=== PATIENT | female | born 1975 | race Two or more races ===

== ENCOUNTER 2017-05-10 14:45 | Emergency (ER) | payer MEDICAID ==
[~2017-05-10] VITALS: Ht 182.9 cm; Wt 86.2 kg
[2017-05-10] MEDS ORDERED: Mylanta II UD 30ml ORAL ONE (15:00)
[2017-05-10] MEDS ORDERED: Dicyclomine HCl 10mg/5ml oral soln ORAL ONE (15:00)
[2017-05-10] MEDS ORDERED: Lidocaine 2% Visc 15ml soln ORAL ONE (15:00)
--- NOTE | 2017-05-10 15:05 | Emergency Room Report ---
History of Present Illness General Chief Complaint: Abdominal Pain Source: Patient, EMS Present Illness HPI 41YOF BIBEMS from work with acute onset abd pain 8 min after eating reheated [employer] burger. No vomiting, diarrhea, fever/chills, urinary complaints No sick contacts Gastric bypass 9 years prior. No additional surgical history Patient bought chicken sandwich and burger yesterday Ate chicken sandwich, put burger in fridge Reheated at work, ate half of it. Within 8 minutes, had 6/10 sharp abd pain to left and right side of abdomen. Nauseated but cant vomit. Allergies: Coded Allergies: No Known Allergies (Unverified , 05/10/17) Patient History Past Medical History: none Past Surgical History: other - gastric bypass Social History: Denies: smoking, alcohol use, drug use Now: No Immunizations: UTD Reviewed Nursing Documentation: PMH: Agreed, PSxH: Agreed Nursing Documentation-PMH Past Medical History: No History, Except For Review of Systems All Other Systems: negative except mentioned in HPI Physical Exam Vital Signs Date Time Temp Pulse Resp B/P (MAP) Pulse Ox O2 Delivery O2 Flow Rate FiO2 05/10/17 14:34 98.2 65 20 106/69 99 Room Air Sp02 EP Interpretation: reviewed, normal General Appearance: normal inspection, well appearing, no apparent distress, alert, GCS 15, non-toxic, other - Well appearing, drinking water in stretcher Head: normocephalic, atraumatic Eyes: bilateral eye PERRL, bilateral eye EOMI ENT: normal ENT inspection, hearing grossly normal, normal voice Neck: normal inspection, full range of motion, supple, no bony tend Respiratory: normal inspection, lungs clear, normal breath sounds, no respiratory distress, no retraction, no wheezing Cardiovascular #1: regular rate, rhythm, no edema Gastrointestinal: normal inspection, normal bowel sounds, non tender, soft, no guarding, no hernia Genitourinary: no CVA tenderness Musculoskeletal: normal inspection, back normal, normal range of motion, Fe' s Sign negative Neurologic: normal inspection, alert, oriented x3, responsive, 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 No peritonitis. GI cocktail given with improvement of symptoms VSS. Afebrile. Patient had diarrhea prior to DC so unlikely SBO Low suspicion for acute bacterial/surgical process requiring additional lab work , imaging, admission and/or surgical evaluation at this time given well appearing, non-focal abd on serial exam, stable vital signs, and tolerating PO. In shared decision making process with patient, understands to return to ER for worsening symptoms and to followup with PMD in reasonable amount of time, 2- 3 days. Last Vital Signs Date Time Temp Pulse Resp B/P (MAP) Pulse Ox O2 Delivery O2 Flow Rate FiO2 05/10/17 14:34 98.2 65 20 106/69 99 Room Air Status: improved Disposition: HOME, SELF-CARE POLINA ARCE M.D. May 10, 2017 15:05
[2017-05-10] MEDS ORDERED: ZOFRAN ODT4 MG ORAL (15:08)
[2017-05-10] MEDS ORDERED: PEPCID40 MG PO (15:08)
[2017-05-10 15:34] VITALS: BP 119/65
== END 2017-05-10 15:31 | disposition home or self-care (01) ==
LOC: EDBD 14:45 → EMR 15:01
DX: R10.84 Generalized abdominal pain (principal); R11.0 Nausea; Z98.84 Bariatric surgery status
CPT/HCPCS: 99284

== ENCOUNTER 2017-07-07 09:40 | Emergency (ER) | payer BC, MEDICAID ==
[~2017-07-07] VITALS: Ht 182.9 cm; Wt 93.0 kg
[~2017-07-07 09:40] MED LIST: PEPCID40 MG PO; ZOFRAN ODT4 MG ORAL
[2017-07-07 10:35] LABS: APPEARANCE,URINE CLEAR; EOSINOPHILS % (AUTO) 1.9 % (0.0-3.0); KETONES,URINE NEGATIVE (NEGATIVE); LEUKOCYTE ESTERASE ,URINE 1+ (NEGATIVE); LYMPHOCYTES % (AUTO) 24.8 % (20.0-45.0); MEAN CORPUSCULAR HEMOGLOBIN 28.1 PG (27.0-31.0); MEAN CORPUSCULAR HGB CONC 30.9 G/DL (32.0-36.0); MEAN CORPUSCULAR VOLUME 91 FL (80-99); MEAN PLATELET VOLUME 8.7 FL (6.5-10.1); MONOCYTES % (AUTO) 7.8 % (1.0-10.0); NEUTROPHILS % (AUTO) 64.5 % (45.0-75.0); NITRITE,URINE NEGATIVE (NEGATIVE); PH,URINE 5 (4.5-8.0); PLATELET COUNT 315 K/UL (150-450); PROTEIN,URINE NEGATIVE (NEGATIVE); UROBILINOGEN,URINE NORMAL MG/DL (0.0-1.0); WHITE BLOOD COUNT 9.4 K/UL (4.8-10.8)
[2017-07-07 10:39] VITALS: BP 105/69
[2017-07-07 10:50] LABS: ANION GAP 7 mmol/L (5-15); CALCIUM 8.5 MG/DL (8.5-10.1); CARBON DIOXIDE 27 MMOL/L (21-32); CHLORIDE 107 MMOL/L (98-107); CREATININE 0.6 MG/DL (0.55-1.30); GLOMERULAR FILTRATION RATE > 60 mL/min (>60); POTASSIUM 3.9 MMOL/L (3.5-5.1); SODIUM 141 MMOL/L (136-145)
[2017-07-07 10:54] LABS: SQUAMOUS EPITHELIAL CELL,UR FEW /LPF (NONE/OCC); WBC,URINE 0-2 /HPF (0 - 2)
[2017-07-07 10:55] LABS: ALANINE AMINOTRANSFERASE 44 U/L (12-78); ALBUMIN/GLOBULIN RATIO 0.9 (1.0-2.7); ASPARTATE AMINO TRANSFERASE 20 U/L (15-37); BACTERIA,URINE FEW /HPF; TOTAL PROTEIN 7.4 G/DL (6.4-8.2)
--- NOTE | 2017-07-07 10:55 | Diagnostic Imaging Report ---
Indication: Headache Technique: Contiguous 5 mm thick transaxial imaging of the head obtained in a Siemens Sensation [address] scanner. Soft tissue and bone windows generated. Automatic Exposure Control was utilized. Total Dose length Product (DLP): [address] Dose Index Volume (CTDIvol): 70.38, 0.15 mGy Comparison: none Findings: The size and configuration of the cortical sulci, basal cisterns, and ventricles are within normal limits for age. There is no mass effect, midline shift, or edema identified. There is no evidence of acute hemorrhage or abnormal intra-axial or extra-axial fluid collections. The bones and soft tissues are unremarkable. Impression: No mass effect, edema or acute bleed. The CT scanner at [facility] is accredited by the [employer] and the scans are performed using dose optimization techniques as appropriate to a performed exam including Automatic Exposure control.
[2017-07-07] MEDS ORDERED: MECLIZINE HCL25 MG ORAL (11:37)
[2017-07-07 13:04] VITALS: BP_SYST 102; BP_SYST 105; BP_DIAS 65; BP_DIAS 69
[2017-07-07 13:10] VITALS: BP 102/65
--- NOTE | 2017-07-09 09:13 | Emergency Room Report ---
History of Present Illness General Chief Complaint: General Complaint Source: Patient Present Illness HPI Patient is a 42-year-old female who presented after increased dizziness. Patient reported having onset of symptoms during rest. Patient stated that she had spinning sensation. She denies recent fever. She had not been vomiting or having diarrhea. She reports feeling somewhat lightheaded. Allergies: Coded Allergies: LATEX (Verified Allergy, Unknown, 07/07/17) Patient History Past Medical History: see triage record Last Menstrual Period: 2006 Now: No Reviewed Nursing Documentation: PMH: Agreed, PSxH: Agreed Nursing Documentation-PMH Hx Diabetes: Yes Hx Gastrointestinal Problems: Yes - GASTRIC BYPASS 2008 Review of Systems All Other Systems: negative except mentioned in HPI Physical Exam Vital Signs Date Time Temp Pulse Resp B/P (MAP) Pulse Ox O2 Delivery O2 Flow Rate FiO2 07/07/17 09:48 97.9 73 18 105/69 97 Room Air Sp02 EP Interpretation: reviewed, normal General Appearance: normal inspection, well appearing, no apparent distress, alert, GCS 15 Head: atraumatic ENT: normal ENT inspection, hearing grossly normal, normal voice Neck: normal inspection, full range of motion, supple, no bony tend Respiratory: normal inspection, lungs clear, normal breath sounds, no respiratory distress, no retraction, no wheezing Cardiovascular #1: regular rate, rhythm, no edema Gastrointestinal: normal inspection, normal bowel sounds, non tender, soft, no guarding, no hernia Genitourinary: no CVA tenderness Musculoskeletal: normal inspection, back normal, normal range of motion Neurologic: normal inspection, alert, oriented x3, responsive, 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 Differential diagnosis included but not limited to urinary tract infection, anemia, arrhythmia, abdominal aortic aneurysm, CVA, subarachnoid hemorrhage, benign positional vertigo.Because of complexity of patient's case laboratory testing and imaging studies were ordered. The patient was noted to have symptomatically dizziness. A CT imaging of the head read by radiology showed no evidence of acute CVA or hemorrhage. The patient was ambulatory with steady gait. Patient given a note for work. The patient is advised to follow up with primary care doctor in 1-2 days. Patient is advised to return if any worsening condition or if any changes in status that are concerning. Labs Test 07/07/17 10:20 White Blood Count 9.4 K/UL (4.8-10.8) Red Blood Count 4.60 M/UL (4.20-5.40) Hemoglobin 12.9 G/DL (12.0-16.0) Hematocrit 41.8 % (37.0-47.0) Mean Corpuscular Volume 91 FL (80-99) Mean Corpuscular Hemoglobin 28.1 PG (27.0-31.0) Mean Corpuscular Hemoglobin Concent 30.9 G/DL (32.0-36.0) Red Cell Distribution Width 13.0 % (11.6-14.8) Platelet Count 315 K/UL (150-450) Mean Platelet Volume 8.7 FL (6.5-10.1) Neutrophils (%) (Auto) 64.5 % (45.0-75.0) Lymphocytes (%) (Auto) 24.8 % (20.0-45.0) Monocytes (%) (Auto) 7.8 % (1.0-10.0) Eosinophils (%) (Auto) 1.9 % (0.0-3.0) Basophils (%) (Auto) 1.0 % (0.0-2.0) Urine Color Yellow Urine Appearance Clear Urine pH 5 (4.5-8.0) Urine Specific [place] 1.020 (1.005-1.035) Urine Protein Negative (NEGATIVE) Urine Glucose (UA) Negative (NEGATIVE) Urine Ketones Negative (NEGATIVE) Urine Occult Blood 2+ (NEGATIVE) Urine Nitrite Negative (NEGATIVE) Urine Bilirubin Negative (NEGATIVE) Urine Urobilinogen Normal MG/DL (0.0-1.0) Urine Leukocyte Esterase 1+ (NEGATIVE) Urine RBC 2-4 /HPF (0 - 2) Urine WBC 0-2 /HPF (0 - 2) Urine Squamous Epithelial Cells Few /LPF (NONE/OCC) Urine Bacteria Few /HPF (NONE) Urine HCG, Qualitative Negative Sodium Level 141 MMOL/L (136-145) Potassium Level 3.9 MMOL/L (3.5-5.1) Chloride Level 107 MMOL/L (98-107) Carbon Dioxide Level 27 MMOL/L (21-32) Anion Gap 7 mmol/L (5-15) Blood Urea Nitrogen 9 mg/dL (7-18) Creatinine 0.6 MG/DL (0.55-1.30) Estimat Glomerular Filtration Rate > 60 mL/min (>60) Glucose Level 87 MG/DL (74-106) Calcium Level 8.5 MG/DL (8.5-10.1) Total Bilirubin 0.8 MG/DL (0.2-1.0) Aspartate Amino Transf (AST/SGOT) 20 U/L (15-37) Alanine Aminotransferase (ALT/SGPT) 44 U/L (12-78) Alkaline Phosphatase 110 U/L (46-116) Troponin I < 0.017 ng/mL (0.000-0.056) Total Protein 7.4 G/DL (6.4-8.2) Albumin 3.6 G/DL (3.4-5.0) Globulin 3.8 g/dL Albumin/Globulin Ratio 0.9 (1.0-2.7) Last Vital Signs Date Time Temp Pulse Resp B/P (MAP) Pulse Ox O2 Delivery O2 Flow Rate FiO2 07/07/17 13:10 97.9 60 14 102/65 97 Room Air Status: improved Disposition: HOME, SELF-CARE Condition: Stable Scripts Meclizine Hcl* (MECLIZINE*) 25 Mg Tablet 25 MG ORAL THREE TIMES A DAY, #14 TAB Prov: Antonio Bacon 07/07/17 Departure Forms: Return to Work Return to Work in (Days): 3 Patient Instructions: Dizziness, [id number] Antonio Bacon Jul 09, 2017 09:13
--- NOTE | 2017-07-15 17:26 | Cardiology Report ---
APPROVED REPORT EKG Measurement Heart [id number] Normal sinus rhythm Incomplete right bundle branch block Borderline ECG
== END 2017-07-07 13:15 | disposition home or self-care (01) ==
LOC: EMR 10:06
DX: R42 Dizziness and giddiness (principal); E11.9 Type 2 diabetes mellitus without complications; Z98.84 Bariatric surgery status; Z91.040 Latex allergy status
CPT/HCPCS: 36415; 70450; 80053; 81003; 81025; 84484; 85025; 93005; 99284